=== PATIENT | male | born 2000 | race American Indian/Alaskan Native ===

== ENCOUNTER 2019-01-21 06:41 | Emergency (ER) | payer BC ==
--- NOTE | 2019-01-21 07:33 | Emergency Department Report ---
HPI - General Chief Complaint: Allergic Reaction Time Seen by Provider: 01/21/19 07:17 - HPI HPI: 18-year-old male presents to ED stay he had an allergic reaction after taking prednisone 5 AM this morning. Patient states he was seen at urgent care [facility] for asthma and was given a prednisone. Patient simply took it this morning he felt some H&P RN is right ear part of his upper right lip swelling. He is left foot swelling. He denies fever, nausea vomiting, abdominal pain, itching, throat pain or swelling. he has a history of allergies and asthma but has not had any problems in the past 5-6 years. ED Past Medical Hx - Past Medical History Previous Medical History?: Yes Hx Asthma: Yes - Surgical History Past Surgical History?: No - Social History Smoking Status: Never Smoker Substance Use Type: None - Medications Home Medications: Home Medications Medication Instructions Recorded Confirmed Last Taken Type diphenhydrAMINE [Benadryl CAP] 25 mg PO Q8HR PRN #20 capsule 01/21/19 Unknown Rx ED Review of Systems ROS: Stated complaint: ALLERGIC REACTION Other details as noted in HPI Comment: All other systems reviewed and negative Physical Exam - Physical Exam Physical Exam: GENERAL: Alert and oriented x3, no apparent distress, Normal Gait, atraumatic. HEAD: Head is normocephalic and a-traumatic. EYES: Extra ocular muscles are intact. Pupils are equal, round, and reactive to light and accommodation. EARS: symetrical, atraumatic, non tender, ear canal clear and moderate cerumen, NOSE: Nose symetrical, Nontender,Nares appeared normal. MOUTH:Mouth is well hydrated and without lesions. Tonsils nonerythematous or swollen, Uvula midline, Tongue not elevated. Mucous membranes are moist. Posterior pharynx clear, no exudate or lesions. Patent airways. NECK: Supple. Non edematous, No lymphadenopathy or thyromegaly. LUNGS: Symetrical with respiration, No wheezing, no rales or crackles, CTAB. HEART: S1, S2 present, regular rate and rhythm ABDOMEN: No organomegaly was noted,Positive bowel sounds, soft, and non- distended. SKIN: Warm and dry, No lesions, No ulceration or induration present. ED Medical Decision Making - Medical Decision Making 18-year-old male presents with allergic reaction to this and prednisone Patient given Benadryl IV in the ED. Patient refused IV fluids and Pepcid. Patient is speaking in clear sentences no signs of airway compromise Critical care attestation.: If time is entered above; I have spent that time in minutes in the direct care of this critically ill patient, excluding procedure time. ED Disposition Clinical Impression: Allergic reaction caused by a drug Disposition: DC-01 TO HOME OR SELFCARE Is pt being admited?: No Does the pt Need Aspirin: No Condition: Stable Instructions: Allergies (ED), Anaphylaxis (ED), Urticaria (ED) Additional Instructions: Make sure to follow up with the primary care physician as discussed. Take all your medications as you've been prescribed. If you have any worsening symptoms or develop new symptoms please return to ED immediately. Prescriptions: diphenhydrAMINE [Benadryl CAP] 25 mg PO Q8HR PRN #20 capsule PRN Reason: Allergic Reaction Referrals: GISSEL GARZON MD [Primary Care Provider] - 3-5 Days Forms: Accompanied Note, Work/School Release Form(ED) Time of Disposition: 08:18
[2019-01-21] MEDS ORDERED: BENADRYL IV ONE (07:36)
[2019-01-21] MEDS ORDERED: PEPCID IV ONE (07:36)
[2019-01-21] MEDS ORDERED: NACL 0.9% 1000 ML 1,000 ML IV ONE (07:36)
== END 2019-01-21 08:30 | disposition home or self-care (01) ==
LOC: ED 06:41
DX: T38.0X5A Adverse effect of glucocorticoids and synthetic analogues, initial encounter (principal); J45.909 Unspecified asthma, uncomplicated; Y92.89 Other specified places as the place of occurrence of the external cause
CPT/HCPCS: 96374; 99282; J1200; J7030